=== PATIENT | male | born 1960 | race African-American/Black ===

== ENCOUNTER 2023-06-15 21:47 | Emergency (ER) | payer OTHER ==
[~2023-06-15] VITALS: Ht 182.9 cm; Wt 70.0 kg
[~2023-06-15 21:47] MED LIST: AMLO10TA80 PO; FURO-151 MT; INSU100I13 SQ; INSU100I28 SQ; LEVO-65 PO; LIP40 PO; SULF1TAB48 MT
[2023-06-15 23:04] VITALS: BP 119/63; PULSE 95; RESP 17; TEMP 98.2; O2SAT 100
[2023-06-16 00:03] LABS: BASOPHILS % 0.2 % (0.0-2.0); EOSINOPHILS % 5.3 % (0.0-5.0); HEMATOCRIT. 33.2 % (42.0-52.0); HEMOGLOBIN. 11.4 g/dL (14.0-18.0); LYMPHOCYTES % 30.9 % (20.0-50.0); MEAN CORPUSCULAR HEMOGLOBIN 29.5 pg (28.0-32.0); MEAN CORPUSCULAR HGB CONC 34.3 g/dL (31.0-37.0); MEAN CORPUSCULAR VOLUME 86.2 fL (80.0-94.0); MEAN PLATELET VOLUME 7.4 fl (7.4-10.4); MONOCYTES % 9.8 % (2.0-8.0); NEUTROPHILS % 53.8 % (40.0-76.0); PLATELET 272 x1000/uL (130-400); RED BLOOD CELL COUNT 3.85 mill/uL (4.7-6.1); WHITE BLOOD COUNT 7.4 x1000/uL (4.5-11.0)
[2023-06-16 00:18] LABS: ALANINE AMINOTRANSFERASE 82 IU/L (10-49); ALBUMIN 4.4 g/dL (3.2-4.8); ASPARTATE AMINOTRANSFERASE 50 IU/L (<34); BILIRUBIN TOTAL 0.5 mg/dL (0.1-1.0); CALCIUM 9.3 mg/dL (8.7-10.4); CARBON DIOXIDE 21 mEq/L (21-32); CHLORIDE 105 mEq/L (98-107); GLUCOSE 82 mg/dL (70-105); POTASSIUM 4.6 mEq/L (3.5-5.1); PROTEIN TOTAL 8.3 g/dL (6.0-8.3); SODIUM 135 mEq/L (136-145); UREA NITROGEN BLOOD 32 mg/dL (9-23)
[2023-06-16] MEDS ORDERED: ONDA4TAB50 MT (03:30)
== END 2023-06-16 04:33 | disposition home or self-care (01) ==
LOC: ER 22:12
DX: E11.649 Type 2 diabetes mellitus with hypoglycemia without coma (principal); R11.10 Vomiting, unspecified; E11.9 Type 2 diabetes mellitus without complications; I10 Essential (primary) hypertension; Z98.890 Other specified postprocedural states
CPT/HCPCS: 36415; 80053; 82962; 85025; 99283

== ENCOUNTER 2023-07-09 07:00 | Emergency (ER) | payer OTHER ==
[~2023-07-09] VITALS: Ht 190.5 cm; Wt 73.0 kg
[~2023-07-09 07:00] MED LIST changes: +ONDA4TAB50 MT
[2023-07-09 07:32] VITALS: O2SAT 100
[2023-07-09 12:29] VITALS: BP 138/89; PULSE 91; RESP 18; TEMP 98.6
== END 2023-07-09 12:30 | disposition home or self-care (01) ==
LOC: ER 07:00
DX: Z45.2 Encounter for adjustment and management of vascular access device (principal); E11.9 Type 2 diabetes mellitus without complications; I10 Essential (primary) hypertension; Z86.73 Personal history of transient ischemic attack (TIA), and cerebral infarction without residual deficits; Z79.899 Other long term (current) drug therapy
CPT/HCPCS: 99281

== ENCOUNTER 2023-10-11 19:40 | Emergency (ER) | payer OTHER ==
[~2023-10-11] VITALS: Ht 190.5 cm; Wt 73.0 kg
[2023-10-11 21:22] VITALS: O2SAT 100
[2023-10-11] MEDS ORDERED: BO1 TP (21:31)
[2023-10-11 21:50] VITALS: BP 138/69; PULSE 78; RESP 17; TEMP 98.2
== END 2023-10-11 21:56 | disposition home or self-care (01) ==
LOC: ER 19:40
DX: S80.821A Blister (nonthermal), right lower leg, initial encounter (principal); E11.9 Type 2 diabetes mellitus without complications; I10 Essential (primary) hypertension; Z86.73 Personal history of transient ischemic attack (TIA), and cerebral infarction without residual deficits; Z79.899 Other long term (current) drug therapy; X58.XXXA Exposure to other specified factors, initial encounter; Y93.89 Activity, other specified; Y92.89 Other specified places as the place of occurrence of the external cause; Y99.8 Other external cause status
CPT/HCPCS: 99283; Z7610

== ENCOUNTER 2024-06-10 17:50 | Emergency (ER) | payer OTHER ==
[~2024-06-10] VITALS: Ht 190.5 cm; Wt 82.0 kg
[~2024-06-10 17:50] MED LIST changes: +BO1 TP
[2024-06-10 18:17] VITALS: O2SAT 99
[2024-06-10 19:14] VITALS: BP 136/89; PULSE 91; RESP 18; TEMP 36.9; O2SAT 98
== END 2024-06-10 20:45 | disposition home or self-care (01) ==
LOC: ER 17:50
DX: S90.822A Blister (nonthermal), left foot, initial encounter (principal); E11.9 Type 2 diabetes mellitus without complications; I10 Essential (primary) hypertension; Z79.899 Other long term (current) drug therapy; Z86.73 Personal history of transient ischemic attack (TIA), and cerebral infarction without residual deficits; Z98.890 Other specified postprocedural states; X58.XXXA Exposure to other specified factors, initial encounter; Y93.89 Activity, other specified; Y92.89 Other specified places as the place of occurrence of the external cause; Y99.8 Other external cause status
CPT/HCPCS: 99283

== ENCOUNTER 2024-09-23 15:59 | Emergency (ER) | payer OTHER ==
[~2024-09-23] VITALS: Ht 185.4 cm; Wt 99.0 kg
[2024-09-23 16:11] VITALS: O2SAT 99
[2024-09-23 18:13] VITALS: BP 122/71; PULSE 70; RESP 16; TEMP 36.6; O2SAT 99
[2024-09-23] MEDS ORDERED: BO1 TP (18:13)
[2024-09-23] MEDS: BACITRACIN ZINC OINT UDPKT TOP ONE (18:24)
== END 2024-09-23 18:29 | disposition home or self-care (01) ==
LOC: ER 15:59
DX: E11.9 Type 2 diabetes mellitus without complications (principal); I10 Essential (primary) hypertension; Z48.00 Encounter for change or removal of nonsurgical wound dressing; Z79.899 Other long term (current) drug therapy; Z86.73 Personal history of transient ischemic attack (TIA), and cerebral infarction without residual deficits
CPT/HCPCS: 99282